=== PATIENT | female | born 1945 | race Caucasian/White ===

== ENCOUNTER → 2018-10-27 09:58 | Outpatient (CLI) | payer MEDICARE, SELFPAY | PROVIDERS: Visit Provider Physician Assistant | DX: R30.0 Dysuria (principal) | CPT/HCPCS: 87077; 87086; 87186 ==

== ENCOUNTER → 2018-10-30 09:07 | Outpatient (CLI) | payer MEDICARE, SELFPAY ==
--- NOTE | 2018-10-30 09:09 | DI.US.S_ITS ---
PROCEDURE: US ABDOMEN COMPLETE INDICATIONS: Abdominal mass TECHNIQUE: Real-time scanning was performed of the abdominal and retroperitoneal organs, with image documentation. COMPARISON: None. FINDINGS: Liver: Liver is normal in size and slightly increased in echogenicity. Gallbladder: There are multiple mobile shadowing gallstones demonstrated in the gallbladder. No gallbladder wall thickening or pericholecystic fluid. Biliary ducts: Intrahepatic bile ducts are non-dilated. Extrahepatic bile duct caliber measures up to 5 mm. Normal is 6-7 mm or less in diameter, or 10 mm or less post-cholecystectomy. Pancreas: Visualized portions of the pancreas are sonographically normal. Spleen: Spleen is normal in size and homogeneous in echotexture. Kidneys: Right kidney measures 10.7 cm long; left kidney measures 12.8 cm long. No hydronephrosis. Aorta: Visualized aorta is normal in caliber at less than 3 cm. Iliacs: Proximal common iliac arteries are normal in caliber at less than 2.5 cm. IVC: Intrahepatic inferior vena cava is patent. Miscellaneous: No free abdominal fluid. Evaluation of the abdominal wall in the right lower quadrant in the area of clinical concern demonstrates no discrete mass lesion. Evaluation of the intra-abdominal contents is limited in this region due to bowel gas. IMPRESSION: 1. Cholelithiasis without evidence of cholecystitis. 2. No discrete mass lesion or fluid collection demonstrated in the right lower quadrant in the area of clinical concern. Further evaluation may be obtained with CT if clinically indicated. Dictated by: Reji Nieves M.D. on 10/30/2018 at 9:48 Approved by: Reji Nieves M.D. on 10/30/2018 at 9:51
== END ==
PROVIDERS: Visit Provider Physician Assistant
DX: R19.03 Right lower quadrant abdominal swelling, mass and lump (principal); K80.80 Other cholelithiasis without obstruction
CPT/HCPCS: 76700

== ENCOUNTER 2019-01-05 14:32 | Emergency (ER) | payer MEDICARE, SELFPAY ==
[2019-01-05 14:35] VITALS: BP 162/66; PULSE 81; RESP 22; TEMP 36.4; O2SAT 99
--- NOTE | 2019-01-05 14:59 | DI.RAD.S_ITS ---
PROCEDURE: XR HAND RT MIN 3V INDICATIONS: Pain to right hand for ground level fall TECHNIQUE: 3 views of the hand(s) acquired. COMPARISON: None. FINDINGS: Bones: No fractures or dislocations. Carpal bones are normally aligned. No suspicious bony lesions. Soft tissues: No suspicious soft tissue calcifications. IMPRESSION: There is a slight degree of degenerative thinning of the joint space at the interphalangeal joints distally. Reported ground level fall, no definite trauma found related to that injury. Dictated by: Matthew Rock M.D. on 01/05/2019 at 15:42 Approved by: Matthew Rock M.D. on 01/05/2019 at 15:44
--- NOTE | 2019-01-05 14:59 | DI.RAD.S_ITS ---
PROCEDURE: XR KNEE LT 3V INDICATIONS: Ground level fall hitting bilateral knees TECHNIQUE: 3 views of the knee were acquired. COMPARISON: None. FINDINGS: Bones: No fractures or dislocations. No suspicious bony lesions. There is a moderate degree of medial compartment joint space narrowing and also moderate degree of lateral facet patellofemoral joint osteoarthritic joint space narrowing. No effusion or loose body seen. Soft tissues: No joint effusion. No suspicious soft tissue calcifications. IMPRESSION: No trauma found. Moderate knee joint osteoarthritis as discussed involving the medial compartment and the lateral facet of the patellofemoral joint. Dictated by: Matthew Rock M.D. on 01/05/2019 at 15:42 Approved by: Matthew Rock M.D. on 01/05/2019 at 15:42
--- NOTE | 2019-01-05 14:59 | DI.CT.S_ITS ---
PROCEDURE: CT HEAD/BRAIN WO CON INDICATIONS: Ground level fall hitting her right forehead/eyebrow area TECHNIQUE: Noncontrast 4.5 mm thick angled axial sections acquired from the foramen magnum to the vertex, with coronal and sagittal reformats. For radiation dose reduction, the following was used: automated exposure control, adjustment of mA and/or kV according to patient size. COMPARISON: None. FINDINGS: Image quality: Excellent. CSF spaces: Basal cisterns are patent. No extra-axial fluid collections. The ventricles are symmetric in size and shape. Brain: No intracranial bleeds or masses. There is cerebral volume loss for age, with resultant ventricular and sulcal prominence. There are periventricular and deep white matter chronic small vessel ischemic changes. There is intracranial internal carotid artery atherosclerosis. Skull and face: Calvarium and visualized facial bones appear intact, without suspicious lesions. Sinuses: Visualized sinuses and mastoids are clear. IMPRESSION: No trauma found. Excellent appearance of the brain parenchyma for age. Dictated by: Matthew Rock M.D. on 01/05/2019 at 15:40 Approved by: Matthew Rock M.D. on 01/05/2019 at 15:41
--- NOTE | 2019-01-05 14:59 | DI.RAD.S_ITS ---
PROCEDURE: XR KNEE RT 3V INDICATIONS: Ground level fall hitting bilateral knees TECHNIQUE: 3 views of the knee were acquired. COMPARISON: None. FINDINGS: Bones: No fractures or dislocations. No suspicious bony lesions. There is a moderate degree of medial compartment degenerative knee joint us to treat joint space narrowing, and at the lateral facet of the patellofemoral joint there is mild such narrowing. Soft tissues: No joint effusion. No suspicious soft tissue calcifications. IMPRESSION: No trauma found. Mild to moderate knee joint osteoarthritis as discussed, most prominent at the medial compartment. Dictated by: Matthew Rock M.D. on 01/05/2019 at 15:41 Approved by: Matthew Rock M.D. on 01/05/2019 at 15:42
--- NOTE | 2019-01-05 15:30 | ED.FALL ---
HPI - Fall <BRYAN Franklin - Last Filed: 01/05/19 22:33> General Chief Complaint: Fall Stated Complaint: 10 minutes/fell hit knees/face Time Seen by Provider: 01/05/19 14:43 Source: patient Mode of arrival: ambulatory Limitations: no limitations History of Present Illness HPI Narrative: 73-year-old female with history of hypertension and is a nonsmoker here for complaint ground level fall shortly before arrival here into the emergency room. She states she stepped off the curb awkwardly causing her to fall forward hitting her right forehead/eyebrow area. She also reports hitting bilateral anterior knees and bracing her fall with her right hand causing pain to her right hand. She denies any loss of consciousness. She denies any nausea vomiting. She denies being on any blood thinners. No neck pain. She is ambulatory into the emergency room. No other concerns or complaints. Related Data Home Medications Medication Instructions Recorded Confirmed Calcium 1 dose PO DAILY 01/05/19 01/05/19 Cinnamon 1 cap PO DAILY 01/05/19 01/05/19 Medicinal Mushroom 1 cap PO DAILY 01/05/19 01/05/19 Vitamin C 1 tab PO DAILY 01/05/19 01/05/19 multivitamin 1 tab PO DAILY 01/05/19 01/05/19 vitamin B complex 1 cap PO DAILY 01/05/19 01/05/19 Allergies Allergy/AdvReac Type Severity Reaction Status Date / Time No Known Drug Allergies Allergy Unverified 10/27/18 09:55 Review of Systems <BRYAN Franklin - Last Filed: 01/05/19 22:33> Constitutional Denies chills, Denies fever(s), Denies lethargy and Denies weakness Eyes Denies change in vision, Denies eye discharge, Denies irritation and Denies loss of vision ENT Ears, Nose, Mouth, and Throat: Denies change in voice, Denies neck pain and Denies sore throat Cardiovascular Denies chest pain, Denies irregular heart rhythm, Denies lightheadedness, Denies palpitations, Denies dyspnea, Denies dyspnea on exertion and Denies orthopnea Respiratory Denies cough, Denies dyspnea, Denies dyspnea on exertion and Denies wheezing Gastrointestinal Gastrointestinal: Denies abdominal pain, Denies change in bowel habits, Denies diarrhea, Denies nausea and Denies vomiting Genitourinary Denies hematuria, Denies flank pain, Denies urinary incontinence and Denies urinary urgency Musculoskeletal Denies neck pain Comments: Pain to right hand bilateral knees after ground level fall. Integumentary/Breasts Denies pruritus, Denies erythema, Denies rash and Denies wounds Neurologic Denies loss of vision and Denies weakness Comments: Hit right forehead and right eyebrow area during ground level fall. Endocrine Denies palpitations Hematologic/Lymphatic Denies easy bruising Allergic/Immunologic Denies wheezing Exam <BRYAN Franklin - Last Filed: 01/05/19 22:33> Initial Vital Signs Initial Vital Signs: Vital Signs Temperature 97.6 F 01/05/19 14:35 Pulse Rate 81 01/05/19 14:35 Respiratory Rate 22 01/05/19 14:35 Blood Pressure 162/66 H 01/05/19 14:35 Pulse Oximetry 99 01/05/19 14:35 Const General: cooperative and well developed Nutritional Appearance: well nourished Orientation: alert, awake, oriented x3 and not confused [facility] Head: normocephalic, abrasion, No Vines's sign, No raccoon eyes, No scalp tenderness and other (1 cm abrasion to the right eyebrow area. Slight swelling to the right fore) Face and sinus: other (No step-offs or signs of skull fracture to the right forehead area.) Mouth: oral mucosae normal and moist mucous membranes Throat: posterior oropharynx normal Eyes Conjunctivae: conjunctivae normal Sclera: sclerae normal Pupils: PERRL EOM: EOM intact bilaterally Neck Neck: normal visual inspection, trachea midline, No lymphadenopathy, No midline deformity and No JVD Lymphatic: No lymphedema Cardio Rate: regular rate Rhythm: regular rhythm Heart Sounds: no click, no gallops, no murmurs and no rubs Pulses: normal peripheral pulses GI Inspection: non-distended Palpation: soft, no hepatosplenomegaly, No guarding, No pulsatile mass and No tender Auscultation: normal bowel sounds Skin General: no rashes or lesions noted, No jaundice and No petechiae Neuro General: alert, oriented x3, gait normal and no focal motor deficits Speech: speech normal Extrem Other: 2 cm abrasion to the anterior left knee. Slight amount of ecchymosis. Slight swelling to the left knee. Distal CMS is intact. Right knee with slight amount of swelling to anterior portion of the right knee. No ecchymosis. No deformities. Distal CMS is intact. Right hand was slight amount of swelling to the right proximal palm area. No open lesions. Distal pulses are intact. Distal range of motions intact. Distal sensation is intact. <Aliyah Robison DO - Last Filed: 01/08/19 07:19> Initial Vital Signs Initial Vital Signs: Vital Signs Temperature 97.6 F 01/05/19 14:35 Pulse Rate 81 01/05/19 14:35 Respiratory Rate 22 01/05/19 14:35 Blood Pressure 162/66 H 01/05/19 14:35 Pulse Oximetry 99 01/05/19 14:35 PFSH <BRYAN Franklin - Last Filed: 01/05/19 22:33> Social History Smoking Status: Never smoker Social History Smoking Status: Never smoker Course <BRYAN Franklin - Last Filed: 01/05/19 22:33> Orders Ordered: Discontinued Medications Diphtheria/Tetanus/Acell Pertussis (Adacel) 0.5 ml IM .ONCE ONE Stop: 01/05/19 15:48 Last Admin: 01/05/19 16:01 Dose: 0.5 ml Vital Signs - 8 hr 01/05/19 14:35 01/05/19 16:31 Temperature 97.6 F Pulse Rate 81 72 Respiratory Rate 22 13 Blood Pressure 162/66 H 148/72 H Pulse Oximetry 99 97 <Aliyah Robison DO - Last Filed: 01/08/19 07:19> Orders Ordered: Discontinued Medications Diphtheria/Tetanus/Acell Pertussis (Adacel) 0.5 ml IM .ONCE ONE Stop: 01/05/19 15:48 Last Admin: 01/05/19 16:01 Dose: 0.5 ml Vital Signs - 8 hr 01/05/19 14:35 01/05/19 16:31 Temperature 97.6 F Pulse Rate 81 72 Respiratory Rate 22 13 Blood Pressure 162/66 H 148/72 H Pulse Oximetry 99 97 MDM - Fall <BRYAN Franklin - Last Filed: 01/05/19 22:33> Imaging Data Right hand : Radiologist's impression: [address] [address] XRay Report Signed Patient: Jaye George [facility]#: [id number] : [id number]:[id number] Age/Sex: 73 / FDate of Service: 01/05/19 Loc: ED Accession Number: [id number] Procedure: XR hand RT min 3V Ordering Provider: Elmer Whittaker PROCEDURE: XR HAND RT MIN 3V INDICATIONS: Pain to right hand for ground level fall TECHNIQUE: 3 views of the hand(s) acquired. COMPARISON: None. FINDINGS: Bones: No fractures or dislocations. Carpal bones are normally aligned. No suspicious bony lesions. Soft tissues: No suspicious soft tissue calcifications. IMPRESSION: There is a slight degree of degenerative thinning of the joint space at the interphalangeal joints distally. Reported ground level fall, no definite trauma found related to that injury. Dictated by: Matthew Rock M.D. on 01/05/2019 at 15:42 Approved by: Matthew Rock M.D. on 01/05/2019 at 15:44 CT scan - head: Radiologist's impression: [address] [address] [address] Scan Report Signed Patient: Jaye George [facility]#: [id number] : [id number]:[id number] Age/Sex: 73 / FDate of Service: 01/05/19 Loc: ED Accession Number: [id number] Procedure: CT head/brain wo con Ordering Provider: Elmer Whittaker PROCEDURE: CT HEAD/BRAIN WO CON INDICATIONS: Ground level fall hitting her right forehead/eyebrow area TECHNIQUE: Noncontrast 4.5 mm thick angled axial sections acquired from the foramen magnum to the vertex, with coronal and sagittal reformats. For radiation dose reduction, the following was used: automated exposure control, adjustment of mA and/or kV according to patient size. COMPARISON: None. FINDINGS: Image quality: Excellent. CSF spaces: Basal cisterns are patent. No extra-axial fluid collections. The ventricles are symmetric in size and shape. Brain: No intracranial bleeds or masses. There is cerebral volume loss for age, with resultant ventricular and sulcal prominence. There are periventricular and deep white matter chronic small vessel ischemic changes. There is intracranial internal carotid artery atherosclerosis. Skull and face: Calvarium and visualized facial bones appear intact, without suspicious lesions. Sinuses: Visualized sinuses and mastoids are clear. IMPRESSION: No trauma found. Excellent appearance of the brain parenchyma for age. Dictated by: Matthew Rock M.D. on 01/05/2019 at 15:40 Approved by: Matthew Rock M.D. on 01/05/2019 at 15:41 Left knee : Radiologist's impression: [address] [address] XRay Report Signed Patient: Jaye George MMR#: [id number] : [id number]:[id number] Age/Sex: 73 / FDate of Service: 01/05/19 Loc: ED Accession Number: [id number] Procedure: XR knee LT 3V Ordering Provider: Elmer Whittaker PROCEDURE: XR KNEE LT 3V INDICATIONS: Ground level fall hitting bilateral knees TECHNIQUE: 3 views of the knee were acquired. COMPARISON: None. FINDINGS: Bones: No fractures or dislocations. No suspicious bony lesions. There is a moderate degree of medial compartment joint space narrowing and also moderate degree of lateral facet patellofemoral joint osteoarthritic joint space narrowing. No effusion or loose body seen. Soft tissues: No joint effusion. No suspicious soft tissue calcifications. IMPRESSION: No trauma found. Moderate knee joint osteoarthritis as discussed involving the medial compartment and the lateral facet of the patellofemoral joint. Dictated by: Matthew Rock M.D. on 01/05/2019 at 15:42 Approved by: Matthew Rock M.D. on 01/05/2019 at 15:42 Right knee : Radiologist's impression: [address] [address] XRay Report Signed Patient: Jaye George MMR#: [id number] : [id number]:[id number] Age/Sex: 73 / FDate of Service: 01/05/19 Loc: ED Accession Number: [id number] Procedure: XR knee RT 3V Ordering Provider: Elmer Whittaker PROCEDURE: XR KNEE RT 3V INDICATIONS: Ground level fall hitting bilateral knees TECHNIQUE: 3 views of the knee were acquired. COMPARISON: None. FINDINGS: Bones: No fractures or dislocations. No suspicious bony lesions. There is a moderate degree of medial compartment degenerative knee joint us to treat joint space narrowing, and at the lateral facet of the patellofemoral joint there is mild such narrowing. Soft tissues: No joint effusion. No suspicious soft tissue calcifications. IMPRESSION: No trauma found. Mild to moderate knee joint osteoarthritis as discussed, most prominent at the medial compartment. Dictated by: Matthew Rock M.D. on 01/05/2019 at 15:41 Approved by: Matthew Rock M.D. on 01/05/2019 at 15:42 [facility] Narrative Medical decision making narrative: CT of the head was obtained was negative for any acute findings. Bilateral x-rays of the knee were obtained and was negative for any acute fractures or dislocations. X-ray the right hand was obtained and was also negative for any acute fractures or dislocations. Tetanus was updated in the emergency room today. Abrasion to the right forehead/eyebrow area was treated with Dermabond. Head injury instructions are provided with warning signs return to the emergency room. Follow up with primary care provider for re-evaluation. For any worsening symptoms return to the emergency room. Abrasion to the left knee was treated with bacitracin and a dressing. Dress wounds daily with bacitracin and dressing until healed. For any worsening symptoms return to the emergency room.. Discharge Plan Departure Patient Disposition: Home Clinical Impression: Minor closed head injury Contusion of knee, left Qualifiers: Encounter type: initial encounter Qualified Code(s): S80.02XA - Contusion of left knee, initial encounter Contusion of knee, right Qualifiers: Encounter type: initial encounter Qualified Code(s): S80.01XA - Contusion of right knee, initial encounter Contusion of right hand Qualifiers: Encounter type: initial encounter Qualified Code(s): S60.221A - Contusion of right hand, initial encounter Discharge Date/Time: 01/05/19 16:33 Interventions: ED Discharge Assessment Last Done: 01/05/19 16:31 Instructions: DI for Closed Head Injury Activity Restrictions/Additional Instructions: X-rays of bilateral knees and the right hand were obtained and were negative for any acute fractures or dislocations. CT of the head was obtained and was also negative for any acute findings or fractures. Signs and symptoms presents as contusions to the knees and hand and a minor head injury. Tetanus was updated today in the emergency room. Use [id number] Tylenol as needed for any discomfort. Head injury instructions are provided warning signs return to the emergency room. Dress open wounds daily with bacitracin and a dressing until healed. Follow up with her primary care provider. Return emergency room for any worsening symptoms. Prescriptions: No Action multivitamin Tablet 1 tab PO DAILY RF: 0 vitamin B complex Capsule 1 cap PO DAILY RF: 0 Calcium 1 dose PO DAILY RF: 0 Cinnamon 1 cap PO DAILY RF: 0 Medicinal Mushroom 1 cap PO DAILY RF: 0 Vitamin C 1 tab PO DAILY RF: 0 Referrals: [facility] [Provider Group] <Aliyah Robison DO - Last Filed: 01/08/19 07:19> Cosign ED Attending Cosignature Attestation: I was immediately available in the department for consultation. This documentation has been reviewed and I agree with assessment and plan. Supervised by Aliyah Robison DO
--- NOTE | 2019-01-05 15:33 | ED_ITS ---
HPI - Fall <BRYAN Franklin - Last Filed: 01/05/19 22:33> General Chief Complaint: Fall Stated Complaint: 10 minutes/fell hit knees/face Time Seen by Provider: 01/05/19 14:43 Source: patient Mode of arrival: ambulatory Limitations: no limitations History of Present Illness HPI Narrative: 73-year-old female with history of hypertension and is a nonsmoker here for complaint ground level fall shortly before arrival here into the emergency room. She states she stepped off the curb awkwardly causing her to fall forward hitting her right forehead/eyebrow area. She also reports hitting bilateral anterior knees and bracing her fall with her right hand causing pain to her right hand. She denies any loss of consciousness. She denies any nausea vomiting. She denies being on any blood thinners. No neck pain. She is ambulatory into the emergency room. No other concerns or complaints. Related Data Home Medications Medication Instructions Recorded Confirmed Calcium 1 dose PO DAILY 01/05/19 01/05/19 Cinnamon 1 cap PO DAILY 01/05/19 01/05/19 Medicinal Mushroom 1 cap PO DAILY 01/05/19 01/05/19 Vitamin C 1 tab PO DAILY 01/05/19 01/05/19 multivitamin 1 tab PO DAILY 01/05/19 01/05/19 vitamin B complex 1 cap PO DAILY 01/05/19 01/05/19 Allergies Allergy/AdvReac Type Severity Reaction Status Date / Time No Known Drug Allergies Allergy Unverified 10/27/18 09:55 Review of Systems <BRYAN Franklin - Last Filed: 01/05/19 22:33> Constitutional Denies chills, Denies fever(s), Denies lethargy and Denies weakness Eyes Denies change in vision, Denies eye discharge, Denies irritation and Denies loss of vision ENT Ears, Nose, Mouth, and Throat: Denies change in voice, Denies neck pain and Denies sore throat Cardiovascular Denies chest pain, Denies irregular heart rhythm, Denies lightheadedness, Denies palpitations, Denies dyspnea, Denies dyspnea on exertion and Denies orthopnea Respiratory Denies cough, Denies dyspnea, Denies dyspnea on exertion and Denies wheezing Gastrointestinal Gastrointestinal: Denies abdominal pain, Denies change in bowel habits, Denies diarrhea, Denies nausea and Denies vomiting Genitourinary Denies hematuria, Denies flank pain, Denies urinary incontinence and Denies urinary urgency Musculoskeletal Denies neck pain Comments: Pain to right hand bilateral knees after ground level fall. Integumentary/Breasts Denies pruritus, Denies erythema, Denies rash and Denies wounds Neurologic Denies loss of vision and Denies weakness Comments: Hit right forehead and right eyebrow area during ground level fall. Endocrine Denies palpitations Hematologic/Lymphatic Denies easy bruising Allergic/Immunologic Denies wheezing Exam <BRYAN Franklin - Last Filed: 01/05/19 22:33> Initial Vital Signs Initial Vital Signs: Vital Signs Temperature 97.6 F 01/05/19 14:35 Pulse Rate 81 01/05/19 14:35 Respiratory Rate 22 01/05/19 14:35 Blood Pressure 162/66 H 01/05/19 14:35 Pulse Oximetry 99 01/05/19 14:35 Const General: cooperative and well developed Nutritional Appearance: well nourished Orientation: alert, awake, oriented x3 and not confused [facility] Head: normocephalic, abrasion, No Vines's sign, No raccoon eyes, No scalp tenderness and other (1 cm abrasion to the right eyebrow area. Slight swelling to the right fore) Face and sinus: other (No step-offs or signs of skull fracture to the right forehead area.) Mouth: oral mucosae normal and moist mucous membranes Throat: posterior oropharynx normal Eyes Conjunctivae: conjunctivae normal Sclera: sclerae normal Pupils: PERRL EOM: EOM intact bilaterally Neck Neck: normal visual inspection, trachea midline, No lymphadenopathy, No midline deformity and No JVD Lymphatic: No lymphedema Cardio Rate: regular rate Rhythm: regular rhythm Heart Sounds: no click, no gallops, no murmurs and no rubs Pulses: normal peripheral pulses GI Inspection: non-distended Palpation: soft, no hepatosplenomegaly, No guarding, No pulsatile mass and No tender Auscultation: normal bowel sounds Skin General: no rashes or lesions noted, No jaundice and No petechiae Neuro General: alert, oriented x3, gait normal and no focal motor deficits Speech: speech normal Extrem Other: 2 cm abrasion to the anterior left knee. Slight amount of ecchymosis. Slight swelling to the left knee. Distal CMS is intact. Right knee with slight amount of swelling to anterior portion of the right knee. No ecchymosis. No deformities. Distal CMS is intact. Right hand was slight amount of swelling to the right proximal palm area. No open lesions. Distal pulses are intact. Distal range of motions intact. Distal sensation is intact. <Aliyah Robison DO - Last Filed: 01/08/19 07:19> Initial Vital Signs Initial Vital Signs: Vital Signs Temperature 97.6 F 01/05/19 14:35 Pulse Rate 81 01/05/19 14:35 Respiratory Rate 22 01/05/19 14:35 Blood Pressure 162/66 H 01/05/19 14:35 Pulse Oximetry 99 01/05/19 14:35 PFSH <BRYAN Franklin - Last Filed: 01/05/19 22:33> Social History Smoking Status: Never smoker Social History Smoking Status: Never smoker Course <BRYAN Franklin - Last Filed: 01/05/19 22:33> Orders Ordered: Discontinued Medications Diphtheria/Tetanus/Acell Pertussis (Adacel) 0.5 ml IM .ONCE ONE Stop: 01/05/19 15:48 Last Admin: 01/05/19 16:01 Dose: 0.5 ml Vital Signs - 8 hr 01/05/19 14:35 01/05/19 16:31 Temperature 97.6 F Pulse Rate 81 72 Respiratory Rate 22 13 Blood Pressure 162/66 H 148/72 H Pulse Oximetry 99 97 <Aliyah Robison DO - Last Filed: 01/08/19 07:19> Orders Ordered: Discontinued Medications Diphtheria/Tetanus/Acell Pertussis (Adacel) 0.5 ml IM .ONCE ONE Stop: 01/05/19 15:48 Last Admin: 01/05/19 16:01 Dose: 0.5 ml Vital Signs - 8 hr 01/05/19 14:35 01/05/19 16:31 Temperature 97.6 F Pulse Rate 81 72 Respiratory Rate 22 13 Blood Pressure 162/66 H 148/72 H Pulse Oximetry 99 97 MDM - Fall <BRYAN Franklin - Last Filed: 01/05/19 22:33> Imaging Data Right hand : Radiologist's impression: [address] [address] XRay Report Signed Patient: Jaye George [facility]#: [id number] : [id number]:[id number] Age/Sex: 73 / FDate of Service: 01/05/19 Loc: ED Accession Number: [id number] Procedure: XR hand RT min 3V Ordering Provider: Elmer Whittaker PROCEDURE: XR HAND RT MIN 3V INDICATIONS: Pain to right hand for ground level fall TECHNIQUE: 3 views of the hand(s) acquired. COMPARISON: None. FINDINGS: Bones: No fractures or dislocations. Carpal bones are normally aligned. No suspicious bony lesions. Soft tissues: No suspicious soft tissue calcifications. IMPRESSION: There is a slight degree of degenerative thinning of the joint space at the interphalangeal joints distally. Reported ground level fall, no definite trauma found related to that injury. Dictated by: Matthew Rock M.D. on 01/05/2019 at 15:42 Approved by: Matthew Rock M.D. on 01/05/2019 at 15:44 CT scan - head: Radiologist's impression: [address] [address] [address] Scan Report Signed Patient: Jaye George [facility]#: [id number] : [id number] Age/Sex: 73 / FDate of Service: 01/05/19 Loc: ED Accession Number: [id number] Procedure: CT head/brain wo con Ordering Provider: Elmer Whittaker PROCEDURE: CT HEAD/BRAIN WO CON INDICATIONS: Ground level fall hitting her right forehead/eyebrow area TECHNIQUE: Noncontrast 4.5 mm thick angled axial sections acquired from the foramen magnum to the vertex, with coronal and sagittal reformats. For radiation dose reduction, the following was used: automated exposure control, adjustment of mA and/or kV according to patient size. COMPARISON: None. FINDINGS: Image quality: Excellent. CSF spaces: Basal cisterns are patent. No extra-axial fluid collections. The ventricles are symmetric in size and shape. Brain: No intracranial bleeds or masses. There is cerebral volume loss for age, with resultant ventricular and sulcal prominence. There are periventricular and deep white matter chronic small vessel ischemic changes. There is intracranial internal carotid artery atherosclerosis. Skull and face: Calvarium and visualized facial bones appear intact, without suspicious lesions. Sinuses: Visualized sinuses and mastoids are clear. IMPRESSION: No trauma found. Excellent appearance of the brain parenchyma for age. Dictated by: Matthew Rock M.D. on 01/05/2019 at 15:40 Approved by: Matthew Rock M.D. on 01/05/2019 at 15:41 Left knee : Radiologist's impression: [address] [address] XRay Report Signed Patient: Jaye George [facility]#: [id number] : [id number]:[id number] Age/Sex: 73 / FDate of Service: 01/05/19 Loc: ED Accession Number: [id number] Procedure: XR knee LT 3V Ordering Provider: Elmer Whittaker PROCEDURE: XR KNEE LT 3V INDICATIONS: Ground level fall hitting bilateral knees TECHNIQUE: 3 views of the knee were acquired. COMPARISON: None. FINDINGS: Bones: No fractures or dislocations. No suspicious bony lesions. There is a moderate degree of medial compartment joint space narrowing and also moderate degree of lateral facet patellofemoral joint osteoarthritic joint space narrowing. No effusion or loose body seen. Soft tissues: No joint effusion. No suspicious soft tissue calcifications. IMPRESSION: No trauma found. Moderate knee joint osteoarthritis as discussed involving the medial compartment and the lateral facet of the patellofemoral joint. Dictated by: Matthew Rock M.D. on 01/05/2019 at 15:42 Approved by: Matthew Rock M.D. on 01/05/2019 at 15:42 Right knee : Radiologist's impression: [address] [address] XRay Report Signed Patient: Jaye George [facility]#: [id number] : [id number]:[id number] Age/Sex: 73 / FDate of Service: 01/05/19 Loc: ED Accession Number: [id number] Procedure: XR knee RT 3V Ordering Provider: Elmer Whittaker PROCEDURE: XR KNEE RT 3V INDICATIONS: Ground level fall hitting bilateral knees TECHNIQUE: 3 views of the knee were acquired. COMPARISON: None. FINDINGS: Bones: No fractures or dislocations. No suspicious bony lesions. There is a moderate degree of medial compartment degenerative knee joint us to treat joint space narrowing, and at the lateral facet of the patellofemoral joint there is mild such narrowing. Soft tissues: No joint effusion. No suspicious soft tissue calcifications. IMPRESSION: No trauma found. Mild to moderate knee joint osteoarthritis as discussed, most prominent at the medial compartment. Dictated by: Matthew Rock M.D. on 01/05/2019 at 15:41 Approved by: Matthew Rock M.D. on 01/05/2019 at 15:42 [facility] Narrative Medical decision making narrative: CT of the head was obtained was negative for any acute findings. Bilateral x-rays of the knee were obtained and was negative for any acute fractures or dislocations. X-ray the right hand was obtained and was also negative for any acute fractures or dislocations. Tetanus was updated in the emergency room today. Abrasion to the right forehead/eyebrow area was treated with Dermabond. Head injury instructions are provided with warning signs return to the emergency room. Follow up with primary care provider for re-evaluation. For any worsening symptoms return to the emergency room. Abrasion to the left knee was treated with bacitracin and a dressing. Dress wounds daily with bacitracin and dressing until healed. For any worsening symptoms return to the emergency room.. Discharge Plan Departure Patient Disposition: Home Clinical Impression: Minor closed head injury Contusion of knee, left Qualifiers: Encounter type: initial encounter Qualified Code(s): S80.02XA - Contusion of left knee, initial encounter Contusion of knee, right Qualifiers: Encounter type: initial encounter Qualified Code(s): S80.01XA - Contusion of right knee, initial encounter Contusion of right hand Qualifiers: Encounter type: initial encounter Qualified Code(s): S60.221A - Contusion of right hand, initial encounter Discharge Date/Time: 01/05/19 16:33 Interventions: ED Discharge Assessment Last Done: 01/05/19 16:31 Instructions: DI for Closed Head Injury Activity Restrictions/Additional Instructions: X-rays of bilateral knees and the right hand were obtained and were negative for any acute fractures or dislocations. CT of the head was obtained and was also negative for any acute findings or fractures. Signs and symptoms presents as contusions to the knees and hand and a minor head injury. Tetanus was updated today in the emergency room. Use [id number] Tylenol as needed for any discomfort. Head injury instructions are provided warning signs return to the emergency room. Dress open wounds daily with bacitracin and a dressing until healed. Follow up with her primary care provider. Return emergency room for any worsening symptoms. Prescriptions: No Action multivitamin Tablet 1 tab PO DAILY RF: 0 vitamin B complex Capsule 1 cap PO DAILY RF: 0 Calcium 1 dose PO DAILY RF: 0 Cinnamon 1 cap PO DAILY RF: 0 Medicinal Mushroom 1 cap PO DAILY RF: 0 Vitamin C 1 tab PO DAILY RF: 0 Referrals: [facility] [Provider Group] <Aliyah Robison DO - Last Filed: 01/08/19 07:19> Cosign ED Attending Cosignature Attestation: I was immediately available in the department for consultation. This documentation has been reviewed and I agree with assessment and plan. Supervised by Aliyah Robison DO
[2019-01-05] MEDS: TET,DIPH,PERTUSS(ACELL),VAC/PF 0.5 ML SYRINGE IM (16:01)
[2019-01-05 16:31] VITALS: BP 148/72; PULSE 72; RESP 13; O2SAT 97
== END 2019-01-05 16:33 | disposition home or self-care (01) ==
PROVIDERS: Emergency Provider Nurse Practitioner Family
DX: S00.90XA Unspecified superficial injury of unspecified part of head, initial encounter (principal); S80.02XA Contusion of left knee, initial encounter; S80.01XA Contusion of right knee, initial encounter; S60.221A Contusion of right hand, initial encounter; W19.XXXA Unspecified fall, initial encounter; Z23 Encounter for immunization
CPT/HCPCS: 70450; 73130; 73562; 90471; 99283; 99284; 90715

== ENCOUNTER → 2020-05-10 10:45 | Outpatient (CLI) | payer OTHER, SELFPAY | PROVIDERS: Visit Provider Physician Assistant | DX: L02.91 Cutaneous abscess, unspecified (principal) | CPT/HCPCS: 87070; 87205 ==

== ENCOUNTER → 2020-05-12 14:15 | Outpatient (CLI) | payer OTHER, SELFPAY | PROVIDERS: Visit Provider Physician Assistant | DX: L02.91 Cutaneous abscess, unspecified (principal) | CPT/HCPCS: 87070; 87075; 87205 ==

== ENCOUNTER 2020-06-23 16:10 | Emergency (ER) | payer OTHER, SELFPAY ==
[2020-06-23 16:28] VITALS: BP 187/80; PULSE 99; RESP 18; TEMP 36.6; O2SAT 97; BMI 35.4
--- NOTE | 2020-06-23 17:00 | PC.NURSE ---
Pt states she had and I&D of cyst on her back and was given keflex TID x 10 days. Finished 3 weeks ago. states she noticed a rash as soon as she started taking it but continued medication anyway at the advice of the prescriber. Today presents with worsening rash on all 4 extremities. Redness, swelling, itching and scaling with multiple small excoriated areas of weeping noted. discoloration starts mid humerus on bilateral UE and extends distally to posterior hands, and on the LE's discoloration and swelling starts on the tops of feet and extends proximally to mid thighs.
[2020-06-23 17:39] LABS: Add Manual Diff / Slide Review NO; Basophils Absolute Auto 100 /uL (0-100); Basophils Percent Auto 0.6 % (0-2); Eosinophils Absolute Auto 300 /uL (0-450); Eosinophils Percent Auto 2.9 % (2-4); Hematocrit 37.8 % (36-46); Hemoglobin 12.1 g/dL (12.0-16.0); Lymphocytes Absolute Auto 1800 /uL (1100-4500); Lymphocytes Percent Auto 18.8 % (25-40); Mean Corpuscular HGB Conc 32.1 % (30-36); Mean Corpuscular Volume 65.3 fL (80-100); Monocytes Absolute Auto 800 /uL (0-900); Monocytes Percent Auto 8.2 % (3-14); Neutrophils Absolute Auto 6500 /uL (1500-7000); Neutrophils Percent Auto 69.5 % (50-75); Platelet Count 354 X10^3/uL (150-400); Prothrombin Time 11.2 SECONDS (10.1-12.7); Red Blood Cell Count 5.78 X10^6/uL (4.0-5.2); Red Cell Distribution Width 15.7 % (11.6-14.8); White Blood Cell Count 9.4 X10^3/uL (4.5-11.0)
[2020-06-23 17:42] LABS: PTT Partial Thromboplastin Tim 29 SECONDS (26.4-36.2)
[2020-06-23 17:45] LABS: Alanine Aminotransferase 21 IU/L (<35); Albumin 4.3 g/dL (3.5-5.0); Albumin Globulin Ratio 1.3 (1.0-2.8); Alkaline Phosphatase 101 U/L (38-126); Aspartate Aminotransferase 33 IU/L (14-36); BUN Creatinine Ratio 23.2 (6-22); Bilirubin Total 0.5 mg/dL (0.2-1.3); Blood Urea Nitrogen 13 mg/dL (7-17); Calcium 9.5 mg/dL (8.4-10.2); Carbon Dioxide 28 mmol/L (22-32); Chloride 102 mmol/L (98-107); Estimated Glomerular Filt Rate > 60.0 mL/min (>60); Globulin 3.3 g/dL (1.7-4.1); Glucose 119 mg/dL (80-110); HEMOLYSIS 18 (0-50); Potassium 3.8 mmol/L (3.4-5.1); Sodium 137 mmol/L (137-145); Total Protein 7.6 g/dL (6.3-8.2)
--- NOTE | 2020-06-23 18:04 | ED.SKABFB ---
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 She was seen on May 10 in family practice clinic with complaints of lower extremity erythema pain and swelling in her left lower extremity and a sebaceous cyst in the upper back that have been getting worse over 2 months and was felt to be infected. With that visit she describes the erythema on the left side being present for 5 months becoming progressively worse and worsened compression socks. She notes a history of multiple prior injuries to her left leg in intermittent swelling on that side over the years. At that visit she was felt to have stasis dermatitis and sebaceous cyst was removed and she was placed on Keflex. Seen on May 14 for follow-up of the sebaceous cyst and packing removal with no comments on the erythema to the extremities Seen on May 16 again Family Practice visit red scaly excoriated rash was noted with a concern for scabies. She declined any treatment was prescribed triamcinolone ointment and a referral to dermatology was initiated Patient did not try the triamcinolone. Has been using coconut oil and continues to have worsening rash. Rash currently involves the extremities and continues on sun-exposed areas and a band like distribution across her upper upper abdomen (as if she was wearing a two piece swimming suit) but she describes no recent sun exposure at all. It has progressed to significant itching, thickened peau de orange type erythema over the dorsal surface of her arms and her hands mid thighs down to her ankles. Chest and face are spared. There is no hive like component to this. By this time the skin is beginning to lichenify with scaling and very dry skin. She is trying very hard to not scratch. She was seeing a massage therapist today who noted that her left leg was more red, more swollen and needed to be further evaluated which is what brought her to the emergency room today. She describes no fevers or chills, no shortness of breath no mouth or upper respiratory symptoms, she states that she otherwise feels well. She has had no diarrhea, no vomiting, no numbness, tingling, syncope. She states that she actually has never tried antibiotics before the Keflex. Related Data Home Medications Medication Instructions Recorded Confirmed Calcium 1 dose PO DAILY 01/05/19 05/16/20 Cinnamon 1 cap PO DAILY 01/05/19 05/16/20 Medicinal Mushroom 1 cap PO DAILY 01/05/19 05/16/20 Vitamin C 1 tab PO DAILY 01/05/19 05/16/20 multivitamin 1 tab PO DAILY 01/05/19 05/16/20 vitamin B complex 1 cap PO DAILY 01/05/19 05/16/20 Previous Rx's Medication Instructions Recorded triamcinolone acetonide 0.1 % 1 applictn TOP DAILY #60 gram 05/16/20 topical cream amoxicillin 250 mg PO TID #21 cap 06/23/20 Allergies Allergy/AdvReac Type Severity Reaction Status Date / Time No Known Drug Allergies Allergy Verified 05/16/20 10:30 Review of Systems Review of Systems Narrative: Remainder of review of systems including constitutional, ENT, cardiovascular, respiratory, GI, , musculoskeletal, skin, neurologic and psychiatric systems reviewed and are unremarkable except as noted in HPI. Patient History Medical History Nevus (Acute) Rash and nonspecific skin eruption (Acute) Social History Smoking Status: Former smoker Smoking Status: Former smoker alcohol intake frequency: 0-2 drinks per day Substance Use Type: does not use Exam Narrative Exam Narrative: General: Healthy appearing, in no acute distress, but is making at significant effort to not scratch at her itchy arms and legs. Able to give a complete and coherent history. Well-nourished well-developed HEENT: Moist mucous membranes, normal sclera with reactive pupils, Neck: No JVD, supple Respiratory: Lungs are clear to auscultation, no wheezing no rales no rhonchi. Full and symmetrical air movement Cardiac: Regular rate and rhythm no murmurs no bruits Abdomen: Soft nontender good bowel tones, no flank pain Skin: Thickened erythematous scaling plaque involving dorsum of the hands forearms, and to a milder degree the inner forearm. Lower extremities with left greater than right redness, scaling and thickness to the rash. Left leg now with significant increasing erythema without drainage and not particularly warm compared to the right side with increasing cellulitic type spread up to the mid thigh now. Left is more swollen than the right but she states she has had chronic left leg swelling for years. She had some mild erythema in a bandlike distribution over her mid anterior abdomen. Back upper chest and area that would be covered by short (a lower abdomen hips upper thighs) are spared. Neurologic: Grossly neurologically intact with no obvious asymmetries or abnormalities Extremities: No trauma, well perfused Psych: Cooperative, appropriate insight and affect Initial Vital Signs Initial Vital Signs: Vital Signs Temperature 97.8 F 06/23/20 16:28 Pulse Rate 99 H 06/23/20 16:28 Respiratory Rate 18 06/23/20 16:28 Blood Pressure 187/80 H 06/23/20 16:28 Pulse Oximetry 97 06/23/20 16:28 [place] [facility] [place] Procedure: Skin biopsy Side (if applicable): left Location: Thigh Technique/Description of procedure performed: 5 mm elliptical incision made lateral aspect right thigh. Full-thickness tissue sent for pathology Patient tolerated procedure: Well Complications: none Additional Comments: To help with rash diagnosis Course Orders Ordered: ED Orders 06/23/20 17:25 C-Reactive Protein Quant Stat Complete Blood Count AUTO DIFF Stat Comprehensive Metabolic Panel Stat Lactate (Lactic Acid) Stat Partial Thromboplastin Time Stat Prothrombin Time INR Stat 06/23/20 18:52 Blood Culture Stat Discontinued Medications Amoxicillin (Trimox) 500 mg PO NOW ONE Stop: 06/23/20 19:51 Last Admin: 06/23/20 20:17 Dose: 500 mg Documented by: RACHEL Lidocaine HCl (Xylocaine 1% (Pf)) 2 ml INJ NOW ONE Stop: 06/23/20 19:51 Last Admin: 06/23/20 20:35 Dose: Not Given Documented by: RACHEL Methylprednisolone (Solu-Medrol 125 Mg Vial) 125 mg IV NOW ONE Stop: 06/23/20 18:17 Last Admin: 06/23/20 18:40 Dose: 125 mg Documented by: RACHEL Vital Signs Vital signs: Vital Signs - 8 hr 06/23/20 16:28 06/23/20 20:43 Temperature 97.8 F Pulse Rate 99 H 90 Respiratory Rate 18 16 Blood Pressure 187/80 H 210/91 H Pulse Oximetry 97 97 MDM - Skin/Abscess/Foreign Bdy Medical Records Attestation: I reviewed the patient's medical records. Lab Data Attestation: I reviewed the patient's lab results. Result diagrams: 06/23/20 17:25 06/23/20 17:25 Labs: Lab Results 06/23/20 06/23/20 06/23/20 Range/Units 17:25 17:25 17:25 WBC 9.4 (4.5-11.0) X10^3/uL RBC 5.78 H (4.0-5.2) X10^6/uL Hgb 12.1 (12.0-16.0) g/dL Hct 37.8 (36-46) % MCV 65.3 L (80-100) fL MCH 21.0 L (26-34) PG MCHC 32.1 (30-36) % RDW 15.7 H (11.6-14.8) % Plt Count 354 (150-400) X10^3/uL Neut % (Auto) 69.5 (50-75) % Lymph % (Auto) 18.8 L (25-40) % [place] % (Auto) 8.2 (3-14) % Eos % (Auto) 2.9 (2-4) % Baso % (Auto) 0.6 (0-2) % Neut # (Auto) 6500 (1632-7786) /uL Lymph # (Auto) 1800 (3608-7397) /uL [place] # (Auto) 800 (0-900) /uL Eos # (Auto) 300 (0-450) /uL Baso # (Auto) 100 (0-100) /uL RBC Morphology See below Polychromasia 1+ H Microcytosis 2+ H PT 11.2 (10.1-12.7) SECONDS INR 1.0 (0.9-1.3) APTT 29 (26.4-36.2) SECONDS Sodium 137 (137-145) mmol/L Potassium 3.8 (3.4-5.1) mmol/L Chloride 102 (98-107) mmol/L Carbon Dioxide 28 (22-32) mmol/L BUN 13 (7-17) mg/dL Creatinine 0.56 (0.52-1.04) mg/dL Estimated GFR > 60.0 (>60) mL/min BUN/Creatinine Ratio 23.2 H (6-22) Glucose 119 H (80-110) mg/dL Lactate (0.7-2.1) mmol/L Calcium 9.5 (8.4-10.2) mg/dL Total Bilirubin 0.5 (0.2-1.3) mg/dL AST 33 (14-36) IU/L ALT 21 (<35) IU/L Alkaline Phosphatase 101 (38-126) U/L C-Reactive Protein (<1.0) mg/dL Total Protein 7.6 (6.3-8.2) g/dL Albumin 4.3 (3.5-5.0) g/dL Globulin 3.3 (1.7-4.1) g/dL Albumin/Globulin Ratio 1.3 (1.0-2.8) 06/23/20 06/23/20 Range/Units 17:25 17:25 WBC (4.5-11.0) X10^3/uL RBC (4.0-5.2) X10^6/uL Hgb (12.0-16.0) g/dL Hct (36-46) % MCV (80-100) fL MCH (26-34) PG MCHC (30-36) % RDW (11.6-14.8) % Plt Count (150-400) X10^3/uL Neut % (Auto) (50-75) % Lymph % (Auto) (25-40) % [place] % (Auto) (3-14) % Eos % (Auto) (2-4) % Baso % (Auto) (0-2) % Neut # (Auto) (7294-9000) /uL Lymph # (Auto) (4713-3872) /uL [place] # (Auto) (0-900) /uL Eos # (Auto) (0-450) /uL Baso # (Auto) (0-100) /uL RBC Morphology Polychromasia Microcytosis PT (10.1-12.7) SECONDS INR (0.9-1.3) APTT (26.4-36.2) SECONDS Sodium (137-145) mmol/L Potassium (3.4-5.1) mmol/L Chloride (98-107) mmol/L Carbon Dioxide (22-32) mmol/L BUN (7-17) mg/dL Creatinine (0.52-1.04) mg/dL Estimated GFR (>60) mL/min BUN/Creatinine Ratio (6-22) Glucose (80-110) mg/dL Lactate 1.0 (0.7-2.1) mmol/L Calcium (8.4-10.2) mg/dL Total Bilirubin (0.2-1.3) mg/dL AST (14-36) IU/L ALT (<35) IU/L Alkaline Phosphatase (38-126) U/L C-Reactive Protein 1.4 H (<1.0) mg/dL Total Protein (6.3-8.2) g/dL Albumin (3.5-5.0) g/dL Globulin (1.7-4.1) g/dL Albumin/Globulin Ratio (1.0-2.8) MDM Narrative Medical decision making narrative: 74-year-old woman with worsening rash over her extremities now with concurrent cellulitis secondary to mild skin breakdown over the left lower extremity(which also has some chronic lower extremity edema). There is no evidence of sepsis. Prior notes had suggested scabies however there is no web space involvement with the hands, the linear lesions are not appreciated and the distribution (sun-exposed areas rather than axilla waistline, in her wrist or elbow or buttocks). The left leg has a increasingly red rash suggestive of the strep cellulitis. Skin biopsy of the left leg is taken. Spoke with Dr. Choi, will follow-up with the skin biopsy, suture removal and cellulitis. Stressed the importance of completing her antibiotic course. Returning if things are worse. Also suggested she stop using the coconut oil and try Eucerin cream to the rash. Again if it is a coconut oil causing the rash I would expect more involvement of the palmar surfaces than we are currently seen. Discharge Plan Departure Patient Disposition: Home Clinical Impression: Rash and nonspecific skin eruption Cellulitis Qualifiers: Site of cellulitis: extremity Site of cellulitis of extremity: lower extremity Laterality: left Qualified Code(s): L03.116 - Cellulitis of left lower limb Instructions: DI for Cellulitis -- Adult Activity Restrictions/Additional Instructions: Thank you for coming today Your rash seems to be getting worse and needs to be better diagnosed. I do not think it is scabies and I am not convinced that it is a contact dermatitis either. I have done a small biopsy of your scan in the emergency room and you will need to follow-up with Dr. Choi in a week to review the findings of the biopsy and see what the next best treatment for this rash might be. She will also take the suture out at that time. Please stop using the coconut oil and try Eucerin cream, and [id number] emollient sold at most drug stores. Your left leg now also has bacteria that has infiltrated through the rash and is causing a cellulitis. Your lab work today was reassuring. You do not have bacteria spreading through your whole body and your kidney and liver function is good. You do need to complete a course of antibiotics for the infection in the left leg. I am going to give you amoxicillin. The prescription has been electronically transmitted to [facility] for you to greens picker tomorrow. You had her 1st dose given in the emergency department tonight. In the ER today you received a dose of steroid to see if this will help reduce the rash and the itching well were trying to figure out the cause and the most appropriate treatment. Dr. Choi office will call you to set up an appointment in 7-10 days to go over the pathology results of the rash, make sure that the infection is improving, and take out the suture. If you are getting worse, developed fevers increasing weakness the rash continues to spread I would encourage you to return to the emergency department Prescriptions: New amoxicillin 250 mg capsule 250 mg PO TID Qty: 21 RF: 0 No Action triamcinolone acetonide 0.1 % cream 1 applictn TOP DAILY Qty: 60 RF: 0 multivitamin Tablet 1 tab PO DAILY RF: 0 vitamin B complex Capsule 1 cap PO DAILY RF: 0 Calcium 1 dose PO DAILY RF: 0 Cinnamon 1 cap PO DAILY RF: 0 Medicinal Mushroom 1 cap PO DAILY RF: 0 Vitamin C 1 tab PO DAILY RF: 0
[2020-06-23 18:13] LABS: Microcytosis 2+; Polychromasia 1+
[2020-06-23 18:32] LABS: C-Reactive Protein Quant 1.4 mg/dL (<1.0)
[2020-06-23] MEDS: methylPREDNISolone 125 MG/2 ML VIAL IV (18:40)
[2020-06-23] MEDS: LIDO 1%/SOD BICARB 8.4% (10ML) 10 ML SYRINGE INJ (20:17)
[2020-06-23] MEDS: AMOXICILLIN 250 MG CAPSULE 500 MG PO (20:17)
[2020-06-23 20:43] VITALS: BP 210/91; PULSE 90; RESP 16; O2SAT 97
== END 2020-06-23 21:18 | disposition home or self-care (01) ==
PROVIDERS: Emergency Medicine; Emergency Provider Emergency Medicine
DX: R21 Rash and other nonspecific skin eruption (principal); L03.116 Cellulitis of left lower limb
CPT/HCPCS: 11106; 36415; 80053; 83605; 85025; 85610; 85730; 86140; 87040; 96374; 99284; J2930

== ENCOUNTER 2023-05-15 02:16 | Emergency (ER) | payer MEDICARE, SELFPAY ==
[2023-05-15 02:31] VITALS: BP 214/103; PULSE 87; RESP 20; TEMP 36.7; O2SAT 97; BMI 34.5
[2023-05-15 04:55] VITALS: BP 189/81; PULSE 79; O2SAT 95
[2023-05-15 05:00] VITALS: BP 172/79; PULSE 78; O2SAT 94
--- NOTE | 2023-05-15 05:36 | ED_ITS ---
HPI - Extremity Problem General Chief complaint: Extremity Problem,Nontraumatic Stated complaint: LEFT LEG BLEEDING Time Seen by Provider: 05/15/23 05:03 Source: patient and family Mode of arrival: Ambulatory History of Present Illness HPI Narrative: 77-year-old woman with chronic lower extremity edema mild superficial varicosities had 1 of the varicosities scratch open and was scoring blood. There is no infection, pain but the blood has not stopped with pressure. She comes in for further evaluation. Related Data Home Medications Medication Instructions Recorded Confirmed Calcium 1 dose PO DAILY 01/05/19 07/17/20 Cinnamon 1 cap PO DAILY 01/05/19 07/17/20 Medicinal Mushroom 1 cap PO DAILY 01/05/19 07/17/20 Vitamin C 1 tab PO DAILY 01/05/19 07/17/20 multivitamin 1 tab PO DAILY 01/05/19 07/17/20 vitamin B complex 1 cap PO DAILY 01/05/19 07/17/20 Previous Rx's Medication Instructions Recorded triamcinolone acetonide 0.1 % 1 applictn topical DAILY #60 grams 07/17/20 topical cream Allergies Allergy/AdvReac Type Severity Reaction Status Date / Time No Known Drug Allergies Allergy Verified 07/17/20 11:49 Review of Systems Review of Systems Narrative: No change to her chronic lower extremity edema Patient History Medical History (Updated 05/15/23 @ 06:22 by Carey Medeiros MD) Ankle pain (~1999) Chicken pox Foot pain (~1994) Hearing loss (~1994) Hepatitis B (~1968) Measles Mumps Nevus Rash and nonspecific skin eruption Wears glasses Surgical History (Updated 07/22/20 @ 21:51 by Callie Barajas) Anesthesia History of dental surgery (~2019) History of ear surgery Family History (Updated 07/22/20 @ 21:54 by Callie Barajas) Father Diabetes mellitus Hypertension Stroke Mother Diabetes mellitus Stroke Brother Stroke Glaucoma Grandmother Hypertension Grandmother Blind Social History Smoking Status: Former smoker Smoking Status: Former smoker alcohol intake frequency: 0-2 drinks per day Substance Use Type: does not use Exam Initial Vital Signs Initial Vital Signs: Vital Signs Temperature 98.1 F 05/15/23 02:31 Pulse Rate 87 08/03/23 02:31 Respiratory Rate 20 05/15/23 02:31 Blood Pressure 214/103 H 05/15/23 02:31 Pulse Oximetry 97 05/15/23 02:31 Oxygen Delivery Method Room Air 05/15/23 02:31 General: Alert appropriate in no acute distress Respiratory: Able to speak in full sentences, no obvious respiratory distress Skin: No obvious rashes, warm and dry Neurologic: Grossly intact no obvious asymmetries or abnormalities Psych: appropriate insight and affect, cooperative Extremities: 1+ bilateral lower extremity edema minor superficial varicosities. On the medial aspect of the leg left ankle there is a small wound just on top of a small varicosity. The wound had a scab the pulled off varicosity was ble eding. Initially controlled however there is a very small blood clot that is going to be easily dislodged. The wound will do better if there is a single stitch to over-sew the area. Using 1 cc of lidocaine the area was anesthetized. Single [id number] suture with 4-0 absorbable gut suture was placed with the ends of the suture buried. Excellent results with no need to have suture removed and dislodge any additional healing scab. Patient tolerated the procedure well Course Vital Signs Vital signs: Vital Signs - 8 hr 05/15/23 02:31 05/15/23 04:55 05/15/23 04:55 Temperature 98.1 F Pulse Rate 87 79 Respiratory Rate 20 Blood Pressure 214/103 H 189/81 H Pulse Oximetry 97 95 Oxygen Delivery Method Room Air Room Air 05/15/23 05:00 05/15/23 05:00 Temperature Pulse Rate 78 Respiratory Rate Blood Pressure 172/79 H Pulse Oximetry 94 Oxygen Delivery Method Room Air MDM - Extremity (Nontraumatic) MDM Narrative Medical decision making narrative: CC: Bleeding superficial varicosity left ankle Complicating co-morbidities: Chronic lower extremity edema Data collected from: patient, Differential considered: Laceration, superficial ulcer Exam documented above, pertinent findings include: Superficial varicosity with pinpoint lesion as source of bleeding Treatments: Slmhsu-ye-fevop stitch to over-sew the pinpoint lesion over the varicosity with excellent results. Discussion: 77-year-old woman with bleeding varicose vein bleeding is moderately controlled with pressure placed however completely controlled with the small [id number] stitch placed. She tolerated the procedure well. Encouraged her to use bit of compression dressing if she is going to be standing up for extended periods of time and encouraged her to return if symptoms return. She is safe for discharge Discharge Plan Departure Patient Disposition: Home Clinical Impression: Bleeding from varicose vein Instructions: DI for Varicose Veins Activity Restrictions/Additional Instructions: Thank you for coming in today You had a scab on top of the superficial varicose vein. The scab fell off and pulled a bit of the skin off of the vein. Using absorbable suture, I closed the skin above the vein so you shouldn't continued to have bleeding issues. The stitches used will dissolve over the next 2 weeks. You can keep a small dressing over the wound until it seems that it is completely healed Using compression socks, men's elastic gym socks or even an Bro wrap may be helpful and just providing extra compression so that you do not have so much swelling. I hope that you have a wonderful showing at the [email or web address] and [employer] festival Prescriptions: No Action triamcinolone acetonide 0.1 % cream 1 applictn TOP DAILY Qty: 60 0RF multivitamin Tablet 1 tab PO DAILY vitamin B complex Capsule 1 cap PO DAILY Calcium 1 dose PO DAILY Cinnamon 1 cap PO DAILY Medicinal Mushroom 1 cap PO DAILY Vitamin C 1 tab PO DAILY Referrals: Ingrid Choi DO [Primary Care Provider] - Stand Alone Forms: Patient Portal/API
== END 2023-05-15 06:33 | disposition home or self-care (01) ==
PROVIDERS: Emergency Provider Emergency Medicine; PCP Family Medicine
DX: I83.892 Varicose veins of left lower extremity with other complications (principal)
CPT/HCPCS: 12001; 99281; 99283